=== PATIENT | female | born 1990 | race Caucasian/White ===

== ENCOUNTER 2018-05-24 18:15 | Emergency (ER) | payer MEDICAID ==
[~2018-05-24] VITALS: Ht 175.3 cm; Wt 105.7 kg
[2018-05-24 18:19] VITALS: BP 123/82
[2018-05-24] MEDS ORDERED: LIDOCAINE 1%-EPI 1:100K, 20ML SQ ONE (18:30)
[2018-05-24] MEDS ORDERED: LIDOCAINE-MPF 1%, 5ML ONE (18:46)
== END 2018-05-24 19:45 | disposition home or self-care (01) ==
LOC: ED 19:10
DX: L02.31 Cutaneous abscess of buttock (principal); F17.200 Nicotine dependence, unspecified, uncomplicated
CPT/HCPCS: 10060; 99283

== ENCOUNTER 2018-05-25 18:59 | Emergency (ER) | payer MEDICAID ==
[~2018-05-25] VITALS: Ht 175.3 cm; Wt 105.8 kg
[2018-05-25 19:06] VITALS: BP 114/68
--- NOTE | 2018-05-25 19:16 | NUR ---
Dr. Osborne at bedside to evaluate pt. Packing removed.
--- NOTE | 2018-05-25 19:27 | NUR ---
Dr. Osborne at bedside to give pt d/c paperwork and walk them to d/c area.
== END 2018-05-25 19:29 | disposition home or self-care (01) ==
LOC: ED 19:26
DX: Z48.01 Encounter for change or removal of surgical wound dressing (principal)
CPT/HCPCS: 99281

== ENCOUNTER 2018-08-24 02:44 | Emergency (ER) | payer MEDICAID ==
[~2018-08-24] VITALS: Ht 175.3 cm; Wt 109.0 kg
[2018-08-24 02:46] VITALS: BP 111/74
[2018-08-24] MEDS ORDERED: DIPH,PERTUSS(ACELL),TET VAC/PF NC IM-VACC ONE (03:00)
[2018-08-24] MEDS ORDERED: DIPH,PERTUSS(ACELL),TET VAC/PF 0.5 ML IM-VACC ONE (03:03)
--- NOTE | 2018-08-24 03:31 | NUR ---
PT MEDICATED PER JUN. PT AMBULATES TO REGISTRATION DESK WITH STEADY GAIT FOR D/C HOME. PT DENIES ANY OTHER NEEDS PERTAINING TO THIS VISIT.
--- NOTE | 2018-08-26 20:45 | NUR ---
ACCESSED PTS CHART SHE CALLED AND STATED SHE LOST HER SCRIPT AND REQUESTED IT BE CALLED IN TO [facility]. CLEARED WITH JENNY ABEL FOR OKAY TO CALL [facility] TO [facility]. [facility] WAS CALLED AND THEY STATED THEY HAVE THE PAPER PRESCRIPTION FOR [facility] AND WILL FILL IT. NO PHONE SCRIPT ENDED UP BEING NEEDED.
== END 2018-08-24 03:34 | disposition home or self-care (01) ==
LOC: ED 03:16
DX: S50.872A Other superficial bite of left forearm, initial encounter (principal); S80.871A Other superficial bite, right lower leg, initial encounter; W50.3XXA Accidental bite by another person, initial encounter; Y93.89 Activity, other specified; Y92.89 Other specified places as the place of occurrence of the external cause; Y99.8 Other external cause status
CPT/HCPCS: 90471; 90715